=== PATIENT | male | born 1980 | race Hispanic/Latino ===

== ENCOUNTER → 2024-05-22 07:58 | Outpatient (CLI) | payer OTHER, SELFPAY ==
--- NOTE | 2024-05-22 08:01 | DI.RAD.S_ITS ---
PROCEDURE: FL UPPER GI SERIES INDICATIONS: Gastro-esophageal reflux disease without esophagit COMPARISON: None. FINDINGS: KUB: Preprocedural lpn or medical assistant film demonstrates a normal bowel gas pattern. No suspicious abdominal calcifications. Visualized solid organ contours appear normal. Bony structures appear unremarkable. Esophagus: Esophageal mucosa is normal on air-contrast views. On single-contrast views, there is normal esophageal peristalsis. No strictures, extrinsic mass effects, or diverticula. Small hiatal hernia. Mild esophageal reflux. There is normal transit of a calibrated barium tablet through the esophagus. Stomach: The stomach is normally distensible, with normal rugal fold thickness. No mucosal masses or ulcers. Pylorus and duodenal bulb appear normal in morphology. Duodenal folds are normal in thickness as well. IMPRESSION: 1. Small hiatal hernia with mild esophageal reflux. 2. The stomach and duodenum are within normal limits. Dictated by: Thomas Callahan M.D. on 05/22/2024 at 13:41 Approved by: Thomas Callahan M.D. on 05/22/2024 at 13:47
== END ==
PROVIDERS: Referring Provider Internal Medicine; Visit Provider Internal Medicine
DX: K44.9 Diaphragmatic hernia without obstruction or gangrene (principal); K21.9 Gastro-esophageal reflux disease without esophagitis
CPT/HCPCS: 74240